=== PATIENT | male | born 1950 | race Caucasian/White ===

== ENCOUNTER 2021-01-06 07:12 | Day surgery (SDC) | payer OTHER ==
[~2021-01-06] VITALS: Ht 193 cm; Wt 104.3 kg
[~2021-01-06 07:12] MED LIST: APAP W/CODEINE1 TA2 PO; ATORVASTATIN CA80 MG PO; BISOPROLOL FUMAR5 MG PO; DIAZEPAM 5 MG5 M1 PO; GLIMEPIRIDE4 MG PO; JARDIANCE10 MG PO; LISINOPRIL5 MG PO; MAGNESIUM250 M1 PO; METFORMIN HCL500 M1 PO; MICARDIS 80 MG80 MG PO; POTASSIUM CHLO10 ME1 PO; PREVACID 15 MG15 M4 PO; PROAIR HFA8.5 GM INH; VALACYCLOVIR500 MG PO; WARFARIN SODIUM5 MG PO
[2021-01-06 08:27] LABS: INR 1.1
[2021-01-06 08:41] VITALS: BP 116/69
[2021-01-06] MEDS ORDERED: HYDROCODON-ACE1 EAC7 PO (11:48)
[2021-01-06] MEDS ORDERED: MIRALAX119 GM PO (11:49)
[2021-01-06 12:14] VITALS: BP 116/69
[2021-01-06 12:38] VITALS: BP 116/69
== END 2021-01-06 14:00 | disposition home or self-care (01) ==
LOC: OR 07:12 → TBA 07:15 → OR 14:00
PROVIDERS: ATTEND Surgery
DX: K40.90 Unilateral inguinal hernia, without obstruction or gangrene, not specified as recurrent (principal); I10 Essential (primary) hypertension; E11.9 Type 2 diabetes mellitus without complications; E78.00 Pure hypercholesterolemia, unspecified; J43.9 Emphysema, unspecified; I48.91 Unspecified atrial fibrillation; I25.2 Old myocardial infarction; F32.9 Major depressive disorder, single episode, unspecified; K21.9 Gastro-esophageal reflux disease without esophagitis; Z98.890 Other specified postprocedural states; Z79.899 Other long term (current) drug therapy; Z87.891 Personal history of nicotine dependence; Z79.01 Long term (current) use of anticoagulants; Z20.822 Contact with and (suspected) exposure to COVID-19; Z85.828 Personal history of other malignant neoplasm of skin; Z98.41 Cataract extraction status, right eye; Z98.42 Cataract extraction status, left eye
CPT/HCPCS: 50010; 50101; 50386; 50403; 54118; 56525; 56526; 56527; 58646; 62110; 62900; 70005